=== PATIENT | female | born 2000 | race Caucasian/White ===

== ENCOUNTER 2020-10-29 20:05 | Emergency (ER) | payer OTHER | END 2020-10-29 22:00 | disposition home or self-care (01) | LOC: CSHERS 20:05 | DX: O99.512 Diseases of the respiratory system complicating pregnancy, second trimester (principal); J06.9 Acute upper respiratory infection, unspecified; Z3A.15 15 weeks gestation of pregnancy | CPT/HCPCS: 87081; 87430; 99283 ==

== ENCOUNTER 2020-11-13 03:03 | Emergency (ER) | payer OTHER ==
[2020-11-13 13:42] LABS: SARS-CoV-2 PCR by NAA Not Detected (NotDetected)
== END 2020-11-13 04:48 | disposition home or self-care (01) ==
LOC: CSHERS 03:03
DX: O99.891 Other specified diseases and conditions complicating pregnancy (principal); R05 Cough; Z20.822 Contact with and (suspected) exposure to COVID-19; O99.511 Diseases of the respiratory system complicating pregnancy, first trimester; J45.909 Unspecified asthma, uncomplicated; Z3A.16 16 weeks gestation of pregnancy
CPT/HCPCS: 71045; 87635; 93005; U0003; U0005